=== PATIENT | female | born 1980 | race American Indian/Alaskan Native ===

== ENCOUNTER 2020-03-06 11:21 | Emergency (ER) | payer BC ==
[2020-03-06 11:41] VITALS: BP 142/90
--- NOTE | 2020-03-06 12:17 | Emergency Department Report ---
ED Lower Extremity HPI - General Chief Complaint: Fall Stated Complaint: ANKLE INJURY/FALL Time Seen by Provider: 03/06/20 11:41 Source: patient Mode of arrival: Ambulatory Limitations: No Limitations - History of Present Illness Initial Comments: Patient is a 39-year-old female presents emergency room complaints of left ankle pain that began 2 days ago. She states that she was helping someone move and carrying some boxes and walking down the steps when she excellently misstepped and fell. She states that she had a inversion injury of her ankle. She states since then she has had left ankle pain and swelling. She is ambulatory without difficulty. She states that she went to work yesterday. She states that today she had a increase in her pain. She denies any numbness or weakness. She denies any prior ankle fracture or ankle surgery. Past medical history of sarcoidosis. She has an allergy to gentamicin. Last menstrual cycle 03/01/2020. - Related Data Previous Rx's Medication Instructions Recorded Last Taken Type Naproxen [EC-Naprosyn] 500 mg PO BID PRN #14 tablet. 03/06/20 Unknown Rx Allergies Allergy/AdvReac Type Severity Reaction Status Date / Time gentamicin Allergy Swelling Verified 03/06/20 11:41 ED Review of Systems ROS: Stated complaint: ANKLE INJURY/FALL Other details as noted in HPI Comment: All other systems reviewed and negative ED Past Medical Hx - Past Medical History Previous Medical History?: Yes Additional medical history: Sarcodosis - Surgical History Past Surgical History?: Yes Hx Cholecystectomy: Yes Hx Breast Surgery: Yes (Reduction) Additional Surgical History: Ectopic , Heart cath - Social History Smoking Status: Never Smoker Substance Use Type: Alcohol - Medications Home Medications: Home Medications Medication Instructions Recorded Confirmed Last Taken Type Naproxen [EC-Naprosyn] 500 mg PO BID PRN #14 tablet. 03/06/20 Unknown Rx ED Physical Exam - General Limitations: No Limitations General appearance: alert, in no apparent distress - Head Head exam: Present: atraumatic, normocephalic - Eye Eye exam: Present: normal appearance - ENT ENT exam: Present: mucous membranes moist - Respiratory Respiratory exam: Absent: respiratory distress, accessory muscle use - Extremities Exam Extremities exam: Present: other (ttp present to the bilateral malleoli with mild edema, FROM of the LLE, no deformity, no skin changes, neurovascularly intact) - Neurological Exam Neurological exam: Present: alert, oriented X3 - Psychiatric Psychiatric exam: Present: normal affect, normal mood - Skin Skin exam: Present: warm, dry, intact ED Course Vital Signs 03/06/20 11:36 Temperature 97.8 F Pulse Rate 81 Respiratory 20 Rate Blood Pressure 142/90 O2 Sat by Pulse 99 Oximetry ED Lower Extremity MDM - Radiology Data Radiology results: report reviewed Ordering Physician: JAMIL KAPADIA Date of Service: 03/06/20 Procedure(s): XR ankle 3+V LT Accession Number(s): [id number] cc: JAMIL KAPADIA Fluoro Time In Minutes: LEFT ANKLE 3 VIEW(S) INDICATION / CLINICAL INFORMATION: left ankle pain and swelling COMPARISON: None available. FINDINGS: BONES / JOINT(S): No acute fracture or subluxation. No significant arthritis. Ankle mortise is intact. SOFT TISSUES: Moderate soft tissue swelling and edema surrounding the ankle. Enthesopathy noted at the plantar fascia and Achilles tendon insertions. ADDITIONAL FINDINGS: None. Signer Name: Oneil Guadarrama MD Signed: 03/06/2020 12:21 PM Workstation Name: [id number] Transcribed By: Dictated By: ONEIL GUADARRAMA Electronically Authenticated By: ONEIL GUADARRAMA Signed Date/Time: 03/06/20 1221 DD/ 1220 TD/TT: - Medical Decision Making Patient is a 39-year-old female presents emergency room complaints of left ankle pain that began 2 days ago. She states that she was helping someone move and carrying some boxes and walking down the steps when she excellently misstepped and fell. She states that she had a inversion injury of her ankle. She states since then she has had left ankle pain and swelling. She is ambulatory without difficulty. She states that she went to work yesterday. She states that today she had a increase in her pain. She denies any numbness or weakness. She denies any prior ankle fracture or ankle surgery. Past medical history of sarcoidosis. She has an allergy to gentamicin. Last menstrual cycle 03/01/2020. VSS. on exam: ttp present to the bilateral malleoli with mild edema, FROM of the LLE, no deformity, no skin changes, neurovascularly intact. XR left ankle: BONES / JOINT(S): No acute fracture or subluxation. No significant arthritis. Ankle mortise is intact. SOFT TISSUES: Moderate soft tissue swelling and edema surrounding the ankle. Enthesopathy noted at the plantar fascia and Achilles tendon insertions. ADDITIONAL FINDINGS: None. Examination appears consistent with ankle sprain. Patient placed in Chao wrap by nurse and remained neurovascular intact. Patient given prescription for naproxen. Advised patient Please take medication as prescribed as needed. May use ice for 15 minutes at a time, rest, elevation of the leg. Do not wear Chao bandage too tightly and do not wear at night while sleeping. Follow-up with a orthopedic doctor. Return to emergency room for any new or worsening symptoms - Differential Diagnosis Strain, sprain, fracture, dislocation, tendinitis Critical care attestation.: If time is entered above; I have spent that time in minutes in the direct care of this critically ill patient, excluding procedure time. ED Disposition Clinical Impression: Left ankle sprain Qualifiers: Encounter type: initial encounter Involved ligament of ankle: unspecified ligament Qualified Code(s): S93.402A - Sprain of unspecified ligament of left ankle, initial encounter Disposition: TO HOME OR SELFCARE Is pt being admited?: No Does the pt Need Aspirin: No Condition: Stable Instructions: Ankle Sprain, [id number] Additional Instructions: Please take medication as prescribed as needed. May use ice for 15 minutes at a time, rest, elevation of the leg. Do not wear Chao bandage too tightly and do not wear at night while sleeping. Follow-up with a orthopedic doctor. Return to emergency room for any new or worsening symptoms. Prescriptions: Naproxen [EC-Naprosyn] 500 mg PO BID PRN #14 tablet.dr ROCHA Reason: pain Referrals: PRIMARY MD FRANKO [Primary Care Provider] - 2-3 Days QUE NIETO MD [Staff Physician] - 2-3 Days [facility] [Provider Group] - 2-3 Days Time of Disposition: 12:31 Print Language: TAJIK
--- NOTE | 2020-03-06 12:26 | XRay Report ---
LEFT ANKLE 3 VIEW(S) INDICATION / CLINICAL INFORMATION: left ankle pain and swelling COMPARISON: None available. FINDINGS: BONES / JOINT(S): No acute fracture or subluxation. No significant arthritis. Ankle mortise is intact . SOFT TISSUES: Moderate soft tissue swelling and edema surrounding the ankle. Enthesopathy noted at th e plantar fascia and Achilles tendon insertions. ADDITIONAL FINDINGS: None. Signer Name: Oneil Zuniga MD Signed: 03/06/2020 12:21 PM Workstation Name: [email or web address]
== END 2020-03-06 12:48 | disposition home or self-care (01) ==
LOC: ED 11:21
DX: S93.402A Sprain of unspecified ligament of left ankle, initial encounter (principal); Z90.49 Acquired absence of other specified parts of digestive tract; Z98.890 Other specified postprocedural states; Z79.899 Other long term (current) drug therapy; Z88.1 Allergy status to other antibiotic agents; W10.9XXA Fall (on) (from) unspecified stairs and steps, initial encounter; Y93.89 Activity, other specified; Y92.89 Other specified places as the place of occurrence of the external cause; Y99.8 Other external cause status

== ENCOUNTER 2020-07-28 18:16 | Emergency (ER) | payer SELFPAY ==
[2020-07-28 18:42] VITALS: BP 144/95
--- NOTE | 2020-07-28 19:43 | Event Note ---
ED Screening Note ED Screening Note: left lateral abd pain that 3 days states it feels like a burning pain hx of sarcoidosis and pancreatitis no n/v/d normal BMs states she ate [employer] before symptoms began allergy: gentamcin PSHx cholecystectomy LNMP 07/21/2020 This initial assessment/diagnostic orders/clinical plan/treatment(s) is/are subject to change based on patients health status, clinical progression and re- assessment by fellow clinical providers in the ED. Further treatment and workup at subsequent clinical providers discretion. Patient/guardian urged not to elope from the ED as their condition may be serious if not clinically assessed and managed. Initial orders include: labs, urine
[2020-07-28 19:58] LABS: Basophils # (Auto) 0.1 K/mm3 (0.0-0.1); Basophils % (Auto) 1.2 % (0.0-1.8); Eosinophils # (Auto) 0.1 K/mm3 (0.0-0.4); Eosinophils % (Auto) 2.5 % (0.0-4.3); Hematocrit 33.8 % (30.3-42.9); Lymphocytes # (Auto) 2.3 K/mm3 (1.2-5.4); Lymphocytes % (Auto) 46.9 % (13.4-35.0); Mean Corpuscular HGB Conc 32 % (30-34); Mean Corpuscular Volume 83 fl (79-97); Monocytes # (Auto) 0.2 K/mm3 (0.0-0.8); Platelet Count 279 K/mm3 (140-440); Red Blood Count 4.09 M/mm3 (3.65-5.03); Red Cell Distribution Width 17.8 % (13.2-15.2)
[2020-07-28 20:19] LABS: Bacteria,Urine 1+ /HPF (Negative); Mucus,Urine FEW /HPF
[2020-07-28 20:20] LABS: Bilirubin,Urine NEG (Negative); Blood,Urine NEG (Negative); Color,Urine Yellow (Yellow); Protein,Urine <15 mg/dL mg/dL (Negative); Urobilinogen,Urine < 2.0 mg/dL (<2.0)
[2020-07-28 20:21] LABS: Alanine Aminotransferase 13 units/L (7-56); Albumin 4.1 g/dL (3.9-5); Blood Urea Nitrogen 10 mg/dL (7-17); Calcium 9.3 mg/dL (8.4-10.2); Hemolysis Index 2
[2020-07-28 20:24] LABS: BUN/Creatinine Ratio 20
--- NOTE | 2020-07-28 20:26 | Emergency Department Report ---
ED General Adult HPI - General Chief complaint: Abdominal Pain Stated complaint: ABDOMINAL PAIN Time Seen by Provider: 07/28/20 19:41 Source: patient Mode of arrival: Ambulatory Limitations: No Limitations - History of Present Illness Initial comments: 39-year-old female patient with history of sarcoidosis and pancreatitis presents to the emergency department with complaints of nontraumatic left flank pain with associated nausea for three days. Patient describes the pain as "burning," worse with drinking soda, relieved with applying direct pressure to the affected area. Patient states her current symptoms are not consistent with prior pancreatitis or sarcoidosis flareups. No current steroid or antibiotic use. No known sick contacts. No recent travel. No history of kidney stones. Last menstrual cycle was 07/21/20. Surgical history includes prior cholecystectomy. No medications prior to arrival. Denies fever, chills, vomiting, diarrhea, constipation, vaginal discharge, vaginal bleeding, painful urination, rash. Denies all other complaints at this time. - Related Data Previous Rx's Medication Instructions Recorded Last Taken Type Naproxen [EC-Naprosyn] 500 mg PO BID PRN #14 tablet. 03/06/20 Unknown Rx Sulfamethoxazole/Trimethoprim 1 each PO BID 5 Days tablet 07/28/20 Unknown Rx [Bactrim DS TAB] Allergies Allergy/AdvReac Type Severity Reaction Status Date / Time gentamicin Allergy Swelling Verified 07/28/20 18:35 ED Review of Systems ROS: Stated complaint: CHEST PAIN/ABDOMINAL PAIN Other details as noted in HPI Other: GENERAL: Negative for fever, chills, weight change, anorexia, fatigue. ENT: Negative for ear pain, difficulty hearing, sore throat, nasal congestion, epistaxis. CARDIOVASCULAR: Negative for chest pain, palpitations, lower extremity swelling. PULMONARY: Negative for cough, dyspnea, wheezing, orthopnea, cyanosis. GASTROINTESTINAL: Positive for left flank pain and nausea. MUSCULOSKELETAL: Negative for joint pain, joint swelling, myalgias, back pain, neck pain. NEUROLOGICAL: Negative for headache, seizure, syncope, paresthesias, weakness. INTEGUMENTARY: Negative for erythema, rash, diaphoresis, laceration, ecchymosis. HEMATOLOGICAL: Negative for hemoptysis, hematemesis, hematochezia, hematuria. PSYCHIATRIC: Negative for hallucinations, suicidal ideation, homicidal ideation, anxiety, depression. ED Past Medical Hx - Past Medical History Additional medical history: Sarcodosis - Surgical History Hx Cholecystectomy: Yes Hx Breast Surgery: Yes (Reduction) Additional Surgical History: Ectopic , Heart cath - Social History Smoking Status: Never Smoker Substance Use Type: None - Medications Home Medications: Home Medications Medication Instructions Recorded Confirmed Last Taken Type Naproxen [EC-Naprosyn] 500 mg PO BID PRN #14 tablet. 03/06/20 Unknown Rx Sulfamethoxazole/Trimethoprim 1 each PO BID 5 Days tablet 07/28/20 Unknown Rx [Bactrim DS TAB] ED Physical Exam - General Limitations: No Limitations - Other Other exam information: General: Awake and alert. No acute distress. Head: Atraumatic, normocephalic. Eyes: EOMI. Pupils are equal and round. Normal sclera and conjunctiva. ENT: Oral mucosa is moist. Normal pharyngeal exam. Neck: Supple. No lymphadenopathy. Pulmonary: No respiratory distress. Clear to auscultation bilaterally. Cardiac: Regular rate and rhythm. Pulses are palpable and equal bilaterally. No lower extremity cyanosis or edema. Skin: Warm and dry. No rashes. Abdomen: Soft, non-protuberant. Left flank tenderness, no guarding, rigidity, or rebound. Bowel sounds are normal. No organomegaly or masses noted. McBurney's point is nontender. Umaña sign is negative. No overlying rash or ecchymosis. Back: Normal alignment. No CVA tenderness. Extremities: Symmetrical. Full range of motion intact. Neurological: Alert and oriented, appropriately interactive, no focal deficits. Psych: Cooperative. Appropriate mood and affect. Speech is evenly metered. Thoughts are logically construed. ED Course Vital Signs 07/28/20 18:39 Temperature 98.7 F Pulse Rate 95 H Respiratory 18 Rate Blood Pressure 144/95 O2 Sat by Pulse 100 Oximetry ED Medical Decision Making - Lab Data Result diagrams: 07/28/20 19:46 07/28/20 19:46 - Medical Decision Making Differential diagnosis including but not limited to: pyelonephritis, nephrolithiasis, urinary tract infection, ovarian cyst/torsion, tubo-ovarian abscess, salpingitis, diverticulitis, pancreatitis, sprain/strain On reevaluation, patient remains stable. Repeat abdominal exam is benign. Labs are unremarkable. Urinalysis shows evidence of urinary tract infection as well as candidiasis. Culture sent. test is negative. Treated with one- time dose of Diflucan in the emergency department. First dose of Bactrim administered in the emergency department. Patient is afebrile, hemodynamically stable, well-hydrated. There is no vomiting or CVA tenderness to suggest pyelonephritis. Patient is not concerned for STD exposure. Patient will be discharged home with oral antibiotics and referred to primary care provider for close outpatient follow-up. Patient expressed understanding and is agreeable to plan of care. Strict return precautions provided. Repeat exam is unremarkable and benign. History, exam, diagnostic testing, and current condition do not suggest worrisome pathology to warrant further testing, continued ED treatment, admission, or surgical evaluation at this point. Given the low probability of a significant medical illness, it would be more likely to result in harm than benefit to perform further testing at this stage. Discussed findings, presumptive diagnosis, need for follow-up and specific signs/symptoms that should prompt immediate return to the emergency department. Instructions were explained in detail to the patient in addition to giving written discharge information. Patient expressed understanding and was given the opportunity to a sk questions, all of which were satisfactorily answered prior to discharge home. Critical care attestation.: If time is entered above; I have spent that time in minutes in the direct care of this critically ill patient, excluding procedure time. ED Disposition Clinical Impression: Candiduria Urinary tract infection Qualifiers: Urinary tract infection type: acute cystitis Hematuria presence: without hematuria Qualified Code(s): N30.00 - Acute cystitis without hematuria Disposition: TO HOME OR SELFCARE Is pt being admited?: No Does the pt Need Aspirin: No Condition: Stable Instructions: Urinary Tract Infection, Adult, Abdominal Pain (ED) Additional Instructions: Take Tylenol every 4 hours and Motrin every 8 hours as needed for pain. Take Bactrim with food as directed. Increase your dietary intake of probiotic rich foods while taking this medication. Rest. Drink plenty of fluids. Follow-up with primary care provider this week. Call tomorrow to schedule an a ppointment. See referral information below. Return to the emergency department immediately for new or worsening symptoms. Specifically, return to the emergency department immediately for fever, vomit ing, increased pain, difficulty urinating, rash, abnormal vaginal bleeding/discharge, or any other concerns. Prescriptions: Sulfamethoxazole/Trimethoprim [Bactrim DS TAB] 1 each PO BID 5 Days tablet Referrals: JOSSY KIRAN MD [Staff Physician] - 3-5 Days [facility] [Outside] - 3-5 Days [facility] [Outside] - 3-5 Days [facility] [Outside] - 3-5 Days [facility] [Provider Group] - 3-5 Days Time of Disposition: 20:35
[2020-07-28] MEDS ORDERED: FLUCONAZOLE 100 MG TAB PO ONE (20:32)
[2020-07-28] MEDS ORDERED: SULFAMETHOXAZOLE/TRIMETHOPRIM 800/160MG DS TAB PO ONE (20:32)
[2020-07-28] MEDS ORDERED: FLUCONAZOLE 200 MG TAB PO ONE (21:00)
== END 2020-07-28 20:45 | disposition home or self-care (01) ==
LOC: ED 18:16
DX: N39.0 Urinary tract infection, site not specified (principal); Z90.49 Acquired absence of other specified parts of digestive tract; Z98.890 Other specified postprocedural states; Z88.8 Allergy status to other drugs, medicaments and biological substances; Z79.899 Other long term (current) drug therapy; Z88.1 Allergy status to other antibiotic agents
CPT/HCPCS: 36415; 80053; 81001; 83690; 84703; 85025; 87086; 99283

== ENCOUNTER 2020-10-28 03:55 | Emergency (ER) | payer SELFPAY ==
[2020-10-28] MEDS ORDERED: ACETAMINOPHEN 500 MG TAB PO ONE (04:52)
--- NOTE | 2020-10-28 04:55 | Event Note ---
ED Screening Note Date of service: 10/28/20 Time: 04:54 ED Screening Note: Patient is a 40-year-old -[place] female with a history of sarcoidosis who was diagnosed with Covid +1-week ago, who presents for chest pain or shortness of breath, patient denies nausea vomiting, low-grade fever at home. There is no dizziness or lightheadedness. Symptoms are exacerbated by deep breathing and palpation. Symptoms are relieved nothing tried. This initial assessment/diagnostic orders/clinical plan/treatment(s) is/are subject to change based on patients health status, clinical progression and re- assessment by fellow clinical providers in the ED. Further treatment and workup at subsequent clinical providers discretion. Patient/guardian urged not to elope from the ED as their condition may be serious if not clinically assessed and managed. Initial orders include:
[2020-10-28 05:29] LABS: Basophils % (Auto) 0.4 % (0.0-1.8); Eosinophils % (Auto) 0.2 % (0.0-4.3); Hematocrit 40.8 % (30.3-42.9); Hemoglobin 13.1 gm/dl (10.1-14.3); Lymphocytes # (Auto) 1.5 K/mm3 (1.2-5.4); Lymphocytes % (Auto) 29.9 % (13.4-35.0); Mean Corpuscular HGB Conc 32 % (30-34); Mean Corpuscular Volume 82 fl (79-97); Monocytes # (Auto) 0.2 K/mm3 (0.0-0.8); Monocytes % (Auto) 4.6 % (0.0-7.3); Platelet Count 273 K/mm3 (140-440); Red Blood Count 4.99 M/mm3 (3.65-5.03); Red Cell Distribution Width 18.4 % (13.2-15.2)
[2020-10-28 05:51] LABS: Alanine Aminotransferase 39 units/L (7-56); Albumin 4.6 g/dL (3.9-5); BUN/Creatinine Ratio 14; Blood Urea Nitrogen 11 mg/dL (7-17); Calcium 10.4 mg/dL (8.4-10.2); Hemolysis Index 5
--- NOTE | 2020-10-28 05:56 | XRay Report ---
CHEST PA AND LATERAL VIEWS INDICATION: CP. COMPARISON: None. FINDINGS: Support devices: None. Heart: Within normal limits. Lungs/Pleura: No acute pulmonary or pleural findings. IMPRESSION: 1. No acute findings. Signer Name: Farhat Luis MD Signed: 10/28/2020 5:52 AM Workstation Name: [email or web address] [id number]
[2020-10-28] MEDS ORDERED: SODIUM CHLORIDE 0.9% 1000 ML 1,000 ML IV ONE (07:47)
[2020-10-28] MEDS ORDERED: fentaNYL 100 MCG/2 ML INJ IV ONE (08:00)
[2020-10-28] MEDS ORDERED: ONDANSETRON 4 MG/2 ML INJ IV ONE (08:00)
[2020-10-28] MEDS ORDERED: ASPIRIN 325 MG TAB PO ONE (08:00)
--- NOTE | 2020-10-28 08:06 | Emergency Department Report ---
HPI - General Chief Complaint: Chest Pain Time Seen by Provider: 10/28/20 07:46 - HPI HPI: MSE 2 The patient is a 40-year-old female present with a chief complaint of chest pain. The patient states she was diagnosed with Covid 10/21/2020. The patient st ates since last night she has had an left-sided chest pain described as sharpness and tightness in nature. Patient denies pleurisy but admits to shortness of breath, diaphoresis and nausea/vomiting with her pain. Patient admits an occasional cough that is nonproductive. Patient admits to fever at home. The patient currently gets her chest pain score 5/10. Patient states her last cardiac catheterization occurred in 2010 ED Past Medical Hx - Past Medical History Previous Medical History?: Yes Additional medical history: Sarcoidosis - Surgical History Past Surgical History?: Yes Hx Cholecystectomy: Yes Hx Breast Surgery: Yes (Reduction) Additional Surgical History: Ectopic , Heart cath - Family History Family history: no significant - Social History Smoking Status: Never Smoker Substance Use Type: None (Denies illicit drug use) - Medications Home Medications: Home Medications Medication Instructions Recorded Confirmed Last Taken Type Naproxen [EC-Naprosyn] 500 mg PO BID PRN #14 tablet.dr 03/06/20 Unknown Rx Sulfamethoxazole/Trimethoprim 1 each PO BID 5 Days tablet 07/28/20 Unknown Rx [Bactrim DS TAB] ED Review of Systems ROS: Stated complaint: COVID/HEART PALP Other details as noted in HPI Constitutional: diaphoresis, fever Eyes: denies: eye pain ENT: denies: throat pain Respiratory: cough, shortness of breath Cardiovascular: chest pain Endocrine: no symptoms reported Gastrointestinal: nausea, vomiting, diarrhea Genitourinary: denies: dysuria Musculoskeletal: denies: back pain Neurological: denies: headache Physical Exam - Physical Exam Vital Signs: Vital Signs 10/28/20 10/28/20 04:37 05:21 Temperature 97.9 F Pulse Rate 117 H Respiratory 18 20 Rate Blood Pressure 149/106 [Right] O2 Sat by Pulse 98 Oximetry Physical Exam: GENERAL: The patient is well-developed well-nourished female sitting in chair not appearing to be in acute distress. [] HEENT: Normocephalic. Atraumatic. Extraocular motions are intact. Patient has moist mucous membranes. NECK: Supple. Trachea midline CHEST/LUNGS: Clear to auscultation. There is no respiratory distress noted. HEART/CARDIOVASCULAR: Regular. There is tachycardia. There is no gallop rub or murmur. ABDOMEN: Abdomen is soft, nontender. Patient has normal bowel sounds. There is no abdominal distention. SKIN: There is no rash. There is no edema. There is no diaphoresis. NEURO: The patient is awake, alert, and oriented. The patient is cooperative. The patient has no focal neurologic deficits. The patient has normal speech. GCS 15 MUSCULOSKELETAL: There is no evidence of acute injury. ED Course Vital Signs 10/28/20 10/28/20 04:37 05:21 Temperature 97.9 F Pulse Rate 117 H Respiratory 18 20 Rate Blood Pressure 149/106 [Right] O2 Sat by Pulse 98 Oximetry - Consultations Consultation #1: 10/28/20 11:[address] Garduno's request ED Medical Decision Making - Lab Data Result diagrams: 10/28/20 05:10 10/28/20 05:10 Laboratory Tests 10/28/20 10/28/20 10/28/20 05:10 05:10 08:10 WBC 5.0 RBC 4.99 Hgb 13.1 Hct 40.8 MCV 82 MCH 26 L MCHC 32 RDW 18.4 H Plt Count 273 Lymph % (Auto) 29.9 [place] % (Auto) 4.6 Eos % (Auto) 0.2 Baso % (Auto) 0.4 Lymph # (Auto) 1.5 [place] # (Auto) 0.2 Eos # (Auto) 0.0 Baso # (Auto) 0.0 Seg Neutrophils % 64.9 Seg Neutrophils # 3.3 D-Dimer 237.61 H Sodium 137 Potassium 3.9 Chloride 102.8 Carbon Dioxide 22 Anion Gap 16 BUN 11 Creatinine 0.8 Estimated GFR > 60 BUN/Creatinine Ratio 14 Glucose 164 H Calcium 10.4 H Total Bilirubin 0.30 AST 41 H ALT 39 Alkaline Phosphatase 151 H Troponin T < 0.010 Total Protein 9.0 H Albumin 4.6 Albumin/Globulin Ratio 1.0 10/28/20 10:27 WBC RBC Hgb Hct MCV MCH MCHC RDW Plt Count Lymph % (Auto) [place] % (Auto) Eos % (Auto) Baso % (Auto) Lymph # (Auto) [place] # (Auto) Eos # (Auto) Baso # (Auto) Seg Neutrophils % Seg Neutrophils # D-Dimer Sodium Potassium Chloride Carbon Dioxide Anion Gap BUN Creatinine Estimated GFR BUN/Creatinine Ratio Glucose Calcium Total Bilirubin AST ALT Alkaline Phosphatase Troponin T < 0.010 Total Protein Albumin Albumin/Globulin Ratio - EKG Data -: EKG Interpreted by Me EKG shows normal: sinus rhythm, axis Rate: tachycardia (131 bpm) - EKG Data When compared to previous EKG there are: previous EKG unavailable Interpretation: other (PVC) - Radiology Data Radiology results: report reviewed (Chest x-ray, CT chest), image reviewed (Chest x-ray, CT chest) interpreted by me: Chest x-ray-no focal infiltrates, no pneumothorax. [address] [address] XRay Report Signed Patient: CRYSTAL VICK MR# : [id number] : 1980 Acct:[id number] Age/Sex: 40 / F ADM Date: 10/28/20 Loc: ED Attending Dr: Ordering Physician: VISHAL ALEX NP Date of Service: 10/28 Procedure(s): XR chest routine 2V Accession Number(s): [id number] cc: VISHAL ALEX NP Fluoro Time In Minutes: CHEST PA AND LATERAL VIEWS INDICATION: CP. COMPARISON: None. FINDINGS: Support devices: None. Heart: Within normal limits. Lungs/Pleura: No acute pulmonary or pleural findings. IMPRESSION: 1. No acute findings. Signer Name: Farhat Luis MD Signed: 10/28/2020 5:52 AM Workstation Name: [id number] Transcribed By: KARMEN Dictated By: Farhat Luis MD Electronically Authenticated By: Farhat Luis MD Signed Date/Time: 10/28/20 0552 DD/ 0551 TD/TT: Print Cancel [address] [address] Cat Scan Report Signed Patient: CRYSTAL VICK MR# : [id number] : 1980 Acct:[id number] Age/Sex: 40 / F ADM Date: 10/28/20 Loc: ED Attending Dr: Ordering Physician: AIDA STEWART MD Date of Service: 10/28/20 Procedure(s): CT angio chest Accession Number(s): [id number] cc: AIDA STEWART MD CTA CHEST WITH IV CONTRAST INDICATION: Chest pain OMNI 350 100ML . TECHNIQUE: Axial CT images were obtained through the chest after injection of 100 mL Omnipaque 350 IV contrast. 3 plane MIP reconstructions were produced. All CT scans at this location are performed using CT dose reduction for ALARA by means of automated exposure control. COMPARISON: None available. FINDINGS: Pulmonary Arteries: No pulmonary emboli. Lungs: There are patchy areas of groundglass opacity in the right upper right lower lobes. Trachea and Bronchi: No significant abnormality. Heart and Pericardium: No significant abnormality. Vasculature: No significant abnormality. Lymphatics: No lymphadenopathy. Additional Findings: None. Upper Abdomen: No acute findings. Skeletal Structures: No acute findings or aggressive bone lesions. IMPRESSION: 1. No CT evidence for pulmonary embolism. 2. Patchy areas of groundglass opacity in the right upper and right lower lobes likely reflecting multifocal pneumonia. Signer Name: Wilmar Huang MD Signed: 10/28/2020 11:26 AM Workstation Name: [id number] Transcribed By: MARINA Dictated By: Wilmar Huang MD Electronically Authenticated By: Wilmar Huang MD Signed Date/Time: 10/28/201125 DD/ 24 TD/TT: Print Cancel - Differential Diagnosis Covid, ACS, PE, pericarditis, GERD, dehydration Critical care attestation.: If time is entered above; I have spent that time in minutes in the direct care of this critically ill patient, excluding procedure time. ED Disposition Clinical Impression: Chest pain, COVID Disposition: ADMITTED INPATIENT Is pt being admited?: Yes Does the pt Need Aspirin: Yes Condition: Fair Instructions: Nonspecific Chest Pain, Adult Referrals: PRIMARY CARE, [Primary Care Provider] - 3-5 Days Time of Disposition: 11:36 (Hospitalist called (Dr. Garduno)) Heart Score - HEART Score History: Highly suspicious EKG: Non-specific Age: < 45 Risk factors: 1-2 risk factors Troponin: < normal limit HEART Score: 4 - EKG Read Time Time EKG Completed: 04:47 EKG Read Time: 04:50
--- NOTE | 2020-10-28 10:17 | Electrocardiograph Report ---
[facility] Test Date: 2020-10-28 Test Time: 04:47:39 Pat Name: CRYSTAL VICK Department: Room: Gender: F Md Allergy Immunology: [id number] : 1980 Requested By: VISHAL ALEX Order Number: [id number] Reading MD: Hira Artis Measurements Intervals [place] Rate: 131 P: 61 IN: 149 QRS: 33 QRSD: 76 T: 52 QT: 290 QTc: 428 Interpretive Statements Sinus tachycardia Ventricular premature complex Probable left atrial enlargement No previous ECG available for comparison Electronically Signed On 10-28-2020 10:17:25 EDT by Hira Artis
--- NOTE | 2020-10-28 11:30 | Cat Scan Report ---
CTA CHEST WITH IV CONTRAST INDICATION: Chest pain OMNI 350 100ML . TECHNIQUE: Axial CT images were obtained through the chest after injection of 100 mL Omnipaque 350 IV contrast. 3 plane MIP reconstructions were produced. All CT scans at this location are performed using CT dose reduction for ALARA by means of automated exposure control. COMPARISON: None available. FINDINGS: Pulmonary Arteries: No pulmonary emboli. Lungs: There are patchy areas of groundglass opacity in the right upper right lower lobes. Trachea and Bronchi: No significant abnormality. Heart and Pericardium: No significant abnormality. Vasculature: No significant abnormality. Lymphatics: No lymphadenopathy. Additional Findings: None. Upper Abdomen: No acute findings. Skeletal Structures: No acute findings or aggressive bone lesions. IMPRESSION: 1. No CT evidence for pulmonary embolism. 2. Patchy areas of groundglass opacity in the right upper and right lower lobes likely reflecting mul tifocal pneumonia. Signer Name: Wilmar Huang MD Signed: 10/28/2020 11:26 AM Workstation Name: [id number]
[2020-10-28] MEDS ORDERED: NITROGLYCERIN 2% OINT 1 GM TP ONE (12:22)
[2020-10-28 18:37] VITALS: BP 121/88
== END 2020-10-28 18:37 | disposition admitted as inpatient to this hospital (09) ==
LOC: ED 03:55
DX: U07.1 COVID-19 (principal); R07.9 Chest pain, unspecified; Z79.899 Other long term (current) drug therapy; Z90.49 Acquired absence of other specified parts of digestive tract; Z98.890 Other specified postprocedural states; Z88.8 Allergy status to other drugs, medicaments and biological substances
CPT/HCPCS: 36415; 71046; 71275; 80053; 84484; 85025; 85379; 93005; 96361; 96374; 96375; 99285; J2405; J3010; J7030; Q9967

== ENCOUNTER 2020-12-30 01:15 | Emergency (ER) | payer SELFPAY ==
[2020-12-30] MEDS ORDERED: METOCLOPRAMIDE 10 MG TAB PO ONE (02:00)
[2020-12-30] MEDS ORDERED: predniSONE 20 MG TAB PO ONE (02:00)
[2020-12-30] MEDS ORDERED: diphenhydrAMINE 25 MG CAP PO ONE (02:00)
[2020-12-30 02:51] LABS: Alanine Aminotransferase 10 units/L (7-56); Albumin 3.6 g/dL (3.9-5); Blood Urea Nitrogen 15 mg/dL (7-17); Hemolysis Index 6
[2020-12-30 03:01] LABS: BUN/Creatinine Ratio 25
[2020-12-30 03:08] LABS: Bilirubin,Urine NEG (Negative); Blood,Urine LG (Negative); Color,Urine Yellow (Yellow); Mucus,Urine FEW /HPF; Protein,Urine <15 mg/dL mg/dL (Negative)
[2020-12-30 03:11] LABS: Basophils % (Auto) 0.7 % (0.0-1.8); Eosinophils # (Auto) 0.1 K/mm3 (0.0-0.4); Hematocrit 29.1 % (30.3-42.9); Hemoglobin 9.1 gm/dl (10.1-14.3); Lymphocytes # (Auto) 1.9 K/mm3 (1.2-5.4); Lymphocytes % (Auto) 44.4 % (13.4-35.0); Mean Corpuscular HGB Conc 31 % (30-34); Mean Corpuscular Volume 82 fl (79-97); Monocytes # (Auto) 0.1 K/mm3 (0.0-0.8); Monocytes % (Auto) 3.4 % (0.0-7.3); Platelet Count 273 K/mm3 (140-440); Red Blood Count 3.56 M/mm3 (3.65-5.03); Red Cell Distribution Width 18.2 % (13.2-15.2)
--- NOTE | 2020-12-30 03:55 | Emergency Department Report ---
ED General Adult HPI - General Chief complaint: Dizziness Stated complaint: EXPOSED TO CARBON MONOXIDE Time Seen by Provider: 12/30/20 03:06 Source: patient Mode of arrival: Ambulatory Limitations: No Limitations - History of Present Illness Initial comments: Patient 40-year-old female states she was walking and was supermarket and noticed offensive odor, which triggered allergic reaction. Patient states feeling flushed, sore throat, cough, and itching. Patient was able to remove self from store. Patient drove to home. Once arriving to home advised her to be evaluated in the ED. Patient is alert oriented x3 patient is amatory, there are no wheezing or stridor. Patient is tolerating p.o. intake at this time. Patient denies exacerbating or relieving factors to this point. - Related Data Previous Rx's Medication Instructions Recorded Last Taken Type Naproxen [EC-Naprosyn] 500 mg PO BID PRN #14 tablet. 03/06/20 Unknown Rx Sulfamethoxazole/Trimethoprim 1 each PO BID 5 Days tablet 07/28/20 Unknown Rx [Bactrim DS TAB] Ascorbic Acid [Vitamin C] 1,000 mg PO DAILY #14 tablet 10/28/20 Unknown Rx Aspirin 325 mg PO QDAY #30 tablet 10/28/20 Unknown Rx Azithromycin [Zithromax TAB] 250 mg PO QDAY #6 tablet 10/28/20 Unknown Rx Cholecalciferol Vit D3 [Vitamin D3 1,000 unit PO QDAY #14 tablet 10/28/20 Unknown Rx 1,000 UNIT TAB] Pantoprazole Sodium [Protonix] 40 mg PO DAILY #30 granpkt. 10/28/20 Unknown Rx Prednisone [predniSONE 10 mg 10 mg PO .TAPER #1 tab.ds.pk 10/28/20 Unknown Rx (6-Day Pack, 21 Tabs)] Zinc Sulfate 0 mg PO BID #28 capsule 10/28/20 Unknown Rx Metoclopramide [Reglan] 10 mg PO Q8H #15 tab 12/30/20 Unknown Rx diphenhydrAMINE [Benadryl CAP] 25 mg PO Q8HR PRN #15 capsule 12/30/20 Unknown Rx predniSONE [Deltasone] 40 mg PO QDAY 5 Days #10 tab 12/30/20 Unknown Rx Allergies Allergy/AdvReac Type Severity Reaction Status Date / Time gentamicin Allergy Swelling Verified 07/28/20 18:35 ED Review of Systems ROS: Stated complaint: EXPOSED TO CARBON MONOXIDE Other details as noted in HPI Constitutional: no symptoms reported Eyes: denies: eye pain, eye discharge, vision change ENT: denies: ear pain, throat pain Respiratory: denies: cough, shortness of breath, wheezing Cardiovascular: denies: chest pain, palpitations Endocrine: no symptoms reported Gastrointestinal: denies: abdominal pain, nausea, diarrhea Genitourinary: denies: urgency, dysuria, discharge Musculoskeletal: denies: back pain, joint swelling, arthralgia Skin: pruritus. denies: rash, lesions Neurological: denies: headache, weakness, paresthesias, vertigo Psychiatric: denies: homicidal thoughts, suicidal thoughts Hematological/Lymphatic: as per HPI ED Past Medical Hx - Past Medical History Previous Medical History?: Yes Additional medical history: Sarcoidosis - Surgical History Past Surgical History?: Yes Hx Cholecystectomy: Yes Hx Breast Surgery: Yes (Reduction) Additional Surgical History: Ectopic , Heart cath - Social History Smoking Status: Never Smoker Substance Use Type: None (Denies illicit drug use) - Medications Home Medications: Home Medications Medication Instructions Recorded Confirmed Last Taken Type Naproxen [EC-Naprosyn] 500 mg PO BID PRN #14 tablet. 03/06/20 Unknown Rx Sulfamethoxazole/Trimethoprim 1 each PO BID 5 Days tablet 07/28/20 Unknown Rx [Bactrim DS TAB] Ascorbic Acid [Vitamin C] 1,000 mg PO DAILY #14 tablet 10/28/20 Unknown Rx Aspirin 325 mg PO QDAY #30 tablet 10/28/20 Unknown Rx Azithromycin [Zithromax TAB] 250 mg PO QDAY #6 tablet 10/28/20 Unknown Rx Cholecalciferol Vit D3 [Vitamin D3 1,000 unit PO QDAY #14 tablet 10/28/20 Unknown Rx 1,000 UNIT TAB] Pantoprazole Sodium [Protonix] 40 mg PO DAILY #30 granpkt. 10/28/20 Unknown Rx Prednisone [predniSONE 10 mg 10 mg PO .TAPER #1 tab.ds.pk 10/28/20 Unknown Rx (6-Day Pack, 21 Tabs)] Zinc Sulfate 0 mg PO BID #28 capsule 10/28/20 Unknown Rx Metoclopramide [Reglan] 10 mg PO Q8H #15 tab 12/30/20 Unknown Rx diphenhydrAMINE [Benadryl CAP] 25 mg PO Q8HR PRN #15 capsule 12/30/20 Unknown Rx predniSONE [Deltasone] 40 mg PO QDAY 5 Days #10 tab 12/30/20 Unknown Rx ED Physical Exam - General Limitations: No Limitations General appearance: alert, in no apparent distress - Head Head exam: Present: normocephalic, normal inspection - Eye Eye exam: Present: normal appearance, PERRL, EOMI. Absent: conjunctival injection, nystagmus Pupils: Present: normal accommodation - ENT ENT exam: Present: normal orophraynx, mucous membranes moist, TM's normal bilaterally, normal external ear exam - Neck Neck exam: Present: normal inspection, full ROM. Absent: tenderness, lymphadenopathy, thyromegaly - Respiratory Respiratory exam: Present: normal lung sounds bilaterally. Absent: respiratory distress, wheezes, rales, rhonchi, stridor, chest wall tenderness - Cardiovascular Cardiovascular Exam: Present: regular rate, normal rhythm, normal heart sounds. Absent: systolic murmur, diastolic murmur, rubs, gallop - GI/Abdominal GI/Abdominal exam: Present: soft, normal bowel sounds. Absent: distended, tenderness, bruit, hernia - Rectal Rectal exam: Present: deferred - Extremities Exam Extremities exam: Present: normal inspection, full ROM, normal capillary refill - Back Exam Back exam: Present: normal inspection, full ROM. Absent: CVA tenderness (R), CVA tenderness (L) - Neurological Exam Neurological exam: Present: alert, oriented X3, CN II-XII intact, normal gait, reflexes normal. Absent: motor sensory deficit - Expanded Neurological Exam Expanded Patient oriented to: Present: person, place, time Speech: Present: fluid speech Cranial nerves: EOM's Intact: Normal Best Eye Response (Jade): (4) open spontaneously Best Motor Response (Jade): (6) obeys commands Best Verbal Response (Jade): (5) oriented Jade Total: 15 - Psychiatric Psychiatric exam: Present: normal affect, normal mood - Skin Skin exam: Present: warm, dry, intact, normal color. Absent: rash, erythema, urticaria ED Course Vital Signs 12/30/20 01:20 Temperature 98.3 F Pulse Rate 83 Respiratory 18 Rate Blood Pressure 145/86 O2 Sat by Pulse 92 Oximetry ED Medical Decision Making - Lab Data Result diagrams: 12/30/20 02:19 12/30/20 02:19 S - Medical Decision Making Symptoms improved with medication given in ED. Plan DC to home. Diagnosis allergic reaction cough patient will take all medications as prescribed, follow- up with primary care doctor in 3 to 4 days. Return to emergency department if symptoms worsen. Patient DC'd to home in stable condition at this time Critical care attestation.: If time is entered above; I have spent that time in minutes in the direct care of this critically ill patient, excluding procedure time. ED Disposition Clinical Impression: Allergic reaction Qualifiers: Encounter type: initial encounter Qualified Code(s): T78.40XA - Allergy, unspecified, initial encounter Disposition: HOME / SELF CARE / HOMELESS Is pt being admited?: No Does the pt Need Aspirin: No Condition: Stable Instructions: Allergies, Adult, [id number] Additional Instructions: Take all medications as prescribed, follow-up with your doctor in 2 to 3 days. Return to the emergency department if symptoms worsen. Prescriptions: diphenhydrAMINE [Benadryl CAP] 25 mg PO Q8HR PRN #15 capsule PRN Reason: Allergies predniSONE [Deltasone] 40 mg PO QDAY 5 Days #10 tab Metoclopramide [Reglan] 10 mg PO Q8H #15 tab Referrals: RADHA MONCADA MD [Staff Physician] - 3-5 Days Forms: Work/School Release Form(ED) Time of Disposition: 05:18
[2020-12-30 05:43] VITALS: BP 175/103
== END 2020-12-30 05:43 | disposition home or self-care (01) ==
LOC: ED 01:15
DX: T78.40XA Allergy, unspecified, initial encounter (principal); J02.9 Acute pharyngitis, unspecified; R05.9 Cough, unspecified; Z90.49 Acquired absence of other specified parts of digestive tract; Z79.899 Other long term (current) drug therapy; Z88.8 Allergy status to other drugs, medicaments and biological substances; X58.XXXA Exposure to other specified factors, initial encounter
CPT/HCPCS: 36415; 80053; 81001; 85025; 87086; 99283; J7512

== ENCOUNTER 2021-03-27 02:47 | Emergency (ER) | payer SELFPAY ==
[2021-03-27 03:32] VITALS: BP 122/81
--- NOTE | 2021-03-27 03:48 | Emergency Department Report ---
ED General Adult HPI - General Chief complaint: Skin Rash Stated complaint: SKIN IRRITATION/HANDS AND ARMS Source: patient Mode of arrival: Ambulatory Limitations: No Limitations - History of Present Illness Initial comments: Patient is a 40-year-old -[place] female with a history of morbid obesity and sarcoidosis who presents to the ED with complaint of acute onset per sistent bilateral hand and forearm pain with itchy erythematous maculopapular rashes for the last 2 days. 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 Patient states that she has been taking Benadryl at home with no relief. Patient denies bilateral hand swelling, chest pain or shortness of breath, dysphagia, dysphonia, nausea and vomiting, shortness of breath, abdominal pain or diarrhea, swollen lips or tongue, nasal and sinus congestion, heavy lifting, traumatic injury or fall. MD Complaint: Skin irritation; itching in hands -: Sudden, days(s) (2) Location: upper extremity (bilateral hands and forearms) Radiation: non-radiation Severity scale (0 -10): 5 Quality: aching, sharp Consistency: constant Improves with: none Worsens with: none Associated Symptoms: denies other symptoms, rash (Dry itchy mild erythematous rashes on the forearms and hands bilaterally). denies: confusion, chest pain, cough, diaphoresis, fever/chills, headaches, loss of appetite, malaise, nausea/vomiting, seizure, shortness of breath, syncope, weakness, other Treatments Prior to Arrival: none - Related Data Previous Rx's Medication Instructions Recorded Last Taken Type Naproxen [EC-Naprosyn] 500 mg PO BID PRN #14 tablet. 03/06/20 Unknown Rx Sulfamethoxazole/Trimethoprim 1 each PO BID 5 Days tablet 07/28/20 Unknown Rx [Bactrim DS TAB] Ascorbic Acid [Vitamin C] 1,000 mg PO DAILY #14 tablet 10/28/20 Unknown Rx Aspirin 325 mg PO QDAY #30 tablet 10/28/20 Unknown Rx Azithromycin [Zithromax TAB] 250 mg PO QDAY #6 tablet 10/28/20 Unknown Rx Cholecalciferol Vit D3 [Vitamin D3 1,000 unit PO QDAY #14 tablet 10/28/20 Unknown Rx 1,000 UNIT TAB] Pantoprazole Sodium [Protonix] 40 mg PO DAILY #30 blanchepcassi. 10/28/20 Unknown Rx Prednisone [predniSONE 10 mg 10 mg PO .TAPER #1 tab.ds.pk 10/28/20 Unknown Rx (6-Day Pack, 21 Tabs)] Zinc Sulfate 0 mg PO BID #28 capsule 10/28/20 Unknown Rx Metoclopramide [Reglan] 10 mg PO Q8H #15 tab 12/30/20 Unknown Rx diphenhydrAMINE [Benadryl CAP] 25 mg PO Q8HR PRN #15 capsule 12/30/20 Unknown Rx predniSONE [Deltasone] 40 mg PO QDAY 5 Days #10 tab 12/30/20 Unknown Rx Naproxen 500 mg PO Q12H PRN #20 tab 03/27/21 Unknown Rx Triamcinolone Acetonide 1 applic TP BID #1 tube 03/27/21 Unknown Rx [Triamcinolone Acetonide Oint 0.5%] diphenhydrAMINE [Benadryl CAP] 25 mg PO Q6HR PRN #30 capsule 03/27/21 Unknown Rx Allergies Allergy/AdvReac Type Severity Reaction Status Date / Time gentamicin Allergy Swelling Verified 07/28/20 18:35 ED Review of Systems ROS: Stated complaint: SKIN IRRITATION/HANDS AND ARMS Other details as noted in HPI Constitutional: denies: chills, fever Eyes: denies: eye pain, eye discharge, vision change ENT: denies: ear pain, throat pain Respiratory: denies: cough, shortness of breath, wheezing Cardiovascular: denies: chest pain, palpitations Endocrine: no symptoms reported Gastrointestinal: denies: abdominal pain, nausea, diarrhea Genitourinary: denies: urgency, dysuria, discharge Musculoskeletal: arthralgia (Bilateral hand pain). denies: back pain, joint swelling Skin: rash (Erythematous dry itchy maculopapular rashes on bilateral forearms and hands). denies: lesions Neurological: denies: headache, weakness, paresthesias Psychiatric: denies: anxiety, depression Hematological/Lymphatic: denies: easy bleeding, easy bruising ED Past Medical Hx - Past Medical History Previous Medical History?: Yes Additional medical history: Sarcoidosis - Surgical History Past Surgical History?: Yes Hx Cholecystectomy: Yes Hx Breast Surgery: Yes (Reduction) Additional Surgical History: Ectopic , Heart cath - Social History Smoking Status: Never Smoker Substance Use Type: None - Medications Home Medications: Home Medications Medication Instructions Recorded Confirmed Last Taken Type Naproxen [EC-Naprosyn] 500 mg PO BID PRN #14 tablet.dr 03/06/20 Unknown Rx Sulfamethoxazole/Trimethoprim 1 each PO BID 5 Days tablet 07/28/20 Unknown Rx [Bactrim DS TAB] Ascorbic Acid [Vitamin C] 1,000 mg PO DAILY #14 tablet 10/28/20 Unknown Rx Aspirin 325 mg PO QDAY #30 tablet 10/28/20 Unknown Rx Azithromycin [Zithromax TAB] 250 mg PO QDAY #6 tablet 10/28/20 Unknown Rx Cholecalciferol Vit D3 [Vitamin D3 1,000 unit PO QDAY #14 tablet 10/28/20 Unknown Rx 1,000 UNIT TAB] Pantoprazole Sodium [Protonix] 40 mg PO DAILY #30 granpkt.dr 10/28/20 Unknown Rx Prednisone [predniSONE 10 mg 10 mg PO .TAPER #1 tab.ds.pk 10/28/20 Unknown Rx (6-Day Pack, 21 Tabs)] Zinc Sulfate 0 mg PO BID #28 capsule 10/28/20 Unknown Rx Metoclopramide [Reglan] 10 mg PO Q8H #15 tab 12/30/20 Unknown Rx diphenhydrAMINE [Benadryl CAP] 25 mg PO Q8HR PRN #15 capsule 12/30/20 Unknown Rx predniSONE [Deltasone] 40 mg PO QDAY 5 Days #10 tab 12/30/20 Unknown Rx Naproxen 500 mg PO Q12H PRN #20 tab 03/27/21 Unknown Rx Triamcinolone Acetonide 1 applic TP BID #1 tube 03/27/21 Unknown Rx [Triamcinolone Acetonide Oint 0.5%] diphenhydrAMINE [Benadryl CAP] 25 mg PO Q6HR PRN #30 capsule 03/27/21 Unknown Rx ED Physical Exam - General Limitations: No Limitations General appearance: alert, in no apparent distress, anxious - Head Head exam: Present: atraumatic, normocephalic, normal inspection - Eye Eye exam: Present: normal appearance, PERRL, EOMI Pupils: Present: normal accommodation - ENT ENT exam: Present: normal exam, normal orophraynx, mucous membranes moist, TM's normal bilaterally, normal external ear exam - Neck Neck exam: Present: normal inspection, full ROM - Respiratory Respiratory exam: Present: normal lung sounds bilaterally. Absent: respiratory distress, wheezes, rales, rhonchi, stridor, chest wall tenderness, accessory muscle use, decreased breath sounds, other - Cardiovascular Cardiovascular Exam: Present: regular rate, normal rhythm, normal heart sounds. Absent: systolic murmur, diastolic murmur, rubs, gallop - GI/Abdominal GI/Abdominal exam: Present: soft, normal bowel sounds. Absent: tenderness, guarding, rebound, hyperactive bowel sounds, hypoactive bowel sounds, organomegaly - Extremities Exam Extremities exam: Present: normal inspection, full ROM, normal capillary refill - Back Exam Back exam: Present: normal inspection, full ROM, tenderness (Palpable mild bilateral hand and forearm tenderness). Absent: CVA tenderness (R), CVA tenderness (L), muscle spasm, paraspinal tenderness, vertebral tenderness - Neurological Exam Neurological exam: Present: alert, oriented X3, CN II-XII intact, normal gait, reflexes normal - Psychiatric Psychiatric exam: Present: normal affect, normal mood - Skin Skin exam: Present: warm, dry, intact, rash (Mildly erythematous maculopapular rashes on bilateral hands), erythema, urticaria ED Course Vital Signs 03/27/21 03:29 Temperature 98.3 F Pulse Rate 86 Respiratory 18 Rate Blood Pressure 122/81 O2 Sat by Pulse 99 Oximetry ED Medical Decision Making - Medical Decision Making This is a 40-year-old -[place] female with a history of morbid obesity and sarcoidosis who presents to the ED with complaint of acute onset persistent bilateral hand and forearm pain with itchy erythematous maculopapular rashes for the last 2 days. 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 Patient states that she has been taking Benadryl at home with no relief. In the ED, patient is alert and oriented x3 and is not in any distress. Patient was treated in the ED for pain and was given oral steroid. Patient was discharged home on medications including triamcinolone ointment and naproxen for pain. Patient was advised to follow-up with her primary care physician in 7 to 10 days for reevaluation or return to the ED immediately if symptoms get worse. - Differential Diagnosis Irritant dermatitis, allergic reactions, eczema Critical care attestation.: If time is entered above; I have spent that time in minutes in the direct care of this critically ill patient, excluding procedure time. ED Disposition Clinical Impression: Itching with irritation Irritant contact dermatitis Qualifiers: Contact dermatitis trigger: detergents Qualified Code(s): L24.0 - Irritant contact dermatitis due to detergents Disposition: HOME / SELF CARE / HOMELESS Is pt being admited?: No Does the pt Need Aspirin: No Condition: Stable Instructions: Contact Dermatitis, [id number], Pruritus Additional Instructions: Apply the medication to the affected area, take medication as needed for pain with food, drink plenty of fluids and follow-up with your primary care physician in 7 to 10 days for reevaluation. Return to the ED immediately if symptoms get worse. Prescriptions: diphenhydrAMINE [Benadryl CAP] 25 mg PO Q6HR PRN #30 capsule PRN Reason: Itching Naproxen 500 mg PO Q12H PRN #20 tab PRN Reason: Pain , Severe (7-10) Triamcinolone Acetonide [Triamcinolone Acetonide Oint 0.5%] 1 applic TP BID #1 tube Referrals: [facility] [Provider Group] - 7-10 days Forms: Work/School Release Form(ED) Time of Disposition: 03:50 Print Language: CHADIAN
[2021-03-27] MEDS ORDERED: ACETAMINOPHEN 500 MG TAB PO ONE (03:55)
[2021-03-27] MEDS ORDERED: IBUPROFEN 600 MG TAB PO ONE (03:55)
[2021-03-27] MEDS ORDERED: predniSONE 50 MG TAB PO ONE (03:55)
== END 2021-03-27 04:41 | disposition home or self-care (01) ==
LOC: ED 02:47
DX: L29.9 Pruritus, unspecified (principal); L24.0 Irritant contact dermatitis due to detergents; Z90.49 Acquired absence of other specified parts of digestive tract; Z88.1 Allergy status to other antibiotic agents
CPT/HCPCS: 99282; J7512

== ENCOUNTER 2021-06-21 19:41 | Emergency (ER) | payer SELFPAY | END 2021-06-22 05:34 | disposition left against medical advice (07) | LOC: ED 19:41 | DX: R07.9 Chest pain, unspecified (principal); M54.9 Dorsalgia, unspecified; Z53.21 Procedure and treatment not carried out due to patient leaving prior to being seen by health care provider ==

== ENCOUNTER 2021-11-17 06:11 | Emergency (ER) | payer SELFPAY ==
[2021-11-17 06:15] VITALS: BP 135/75
== END 2021-11-17 09:45 | disposition left against medical advice (07) ==
LOC: ED 06:11
DX: M54.9 Dorsalgia, unspecified (principal); Z53.21 Procedure and treatment not carried out due to patient leaving prior to being seen by health care provider